=== PATIENT | female | born 1995 ===

== ENCOUNTER 2020-11-16 02:18 | Inpatient (IN) | payer OTHER ==
[~2020-11-16] VITALS: Ht 160 cm; Wt 93.0 kg
[2020-11-16] MEDS ORDERED: PRENATAL TABLE1 EAC3 (10:48)
[2020-11-16] MEDS ORDERED: VITAMIN C500 MG PO (10:48)
[2020-11-20] MEDS ORDERED: VITAMIN C500 M6 PO (13:43)
[2020-11-20] MEDS ORDERED: IRON325 MG PO (13:43)
[2020-11-20] MEDS ORDERED: COLACE100 MG PO (13:43)
[2020-11-20] MEDS ORDERED: SIMETHICONE125 M1 PO (13:44)
== END 2020-11-20 19:11 | disposition home or self-care (01) | DRG 788 ==
LOC: OBS/DEL 02:18 → OB/GYN 08:35 → LDR 08:35 → O/R 11:05 → OB/GYN 11:54
PROVIDERS: ADMIT Specialist; ATTEND Specialist
PROC: 4A1HXFZ Monitoring of Products of Conception, Cardiac Rhythm, External Approach (ICD-10-PCS; 2020-11-16)
PROC: 10D00Z1 Extraction of Products of Conception, Low, Open Approach (ICD-10-PCS; principal; 2020-11-16 10:45)
DX: O36.8330 Maternal care for abnormalities of the fetal heart rate or rhythm, third trimester, not applicable or unspecified (principal); O76 Abnormality in fetal heart rate and rhythm complicating labor and delivery; O36.8130 Decreased fetal movements, third trimester, not applicable or unspecified; O24.429 Gestational diabetes mellitus in childbirth, unspecified control; Z3A.32 32 weeks gestation of pregnancy; Z37.0 Single live birth; Z20.822 Contact with and (suspected) exposure to COVID-19